=== PATIENT | male | born 1945 | race Caucasian/White ===

== ENCOUNTER 2022-02-13 09:12 | Inpatient (IN) | payer OTHER, MEDICAID ==
[~2022-02-13] VITALS: Ht 170.2 cm; Wt 67.6 kg
[~2022-02-13 09:12] MED LIST: ALBMDI INH; AZIT500T10 PO; CARB1TAB33 PO; GABA-529 PO
[2022-02-13 09:16] VITALS: BP_SYST 119
[2022-02-13] MEDS ORDERED: IPRATROPIUM/ALBUTEROL SULFATE 3 ML AMPUL.NEB (DUONEB) INH ONE ×2 (09:30→16:30)
[2022-02-13] MEDS ORDERED: methylPREDNISolone SOD SUCC/PF 62.5 MG/ML VIAL IVP ONE (09:30)
[2022-02-13] MEDS ORDERED: MOM PO (09:31)
[2022-02-13] MEDS ORDERED: ROSU10TA2 PO (09:31)
[2022-02-13] MEDS ORDERED: TAMS-11 PO (09:31)
[2022-02-13] MEDS ORDERED: BISA10SU61 RC (09:31)
[2022-02-13] MEDS ORDERED: FINA5TAB3 PO (09:31)
[2022-02-13] MEDS ORDERED: SER25 PO (09:31)
[2022-02-13] MEDS ORDERED: ROTI1PAT7 TP (09:31)
[2022-02-13 09:50] LABS: BASOPHILS % (AUTO) 0.8 % (0.0-2.0); EOSINOPHILS # (AUTO) 0.6 K/uL (0.0-0.4); EOSINOPHILS % (AUTO) 11.2 % (0.0-4.0); HEMATOCRIT 39.1 % (36-54); HEMOGLOBIN 13.1 g/dL (14.0-18.0); LYMPHOCYTES % (AUTO) 19.1 % (20.5-51.5); MEAN CORPUSCULAR HEMOGLOBIN 31 pg (27-31); MEAN CORPUSCULAR HGB CONC 34 % (32-36); MEAN CORPUSCULAR VOLUME 91 fL (79.0-98.0); MONOCYTES # (AUTO) 0.5 K/uL (0.0-1.0); MONOCYTES % (AUTO) 10.1 % (1.7-9.3); NEUTROPHILS # (AUTO) 3.1 K/uL (1.8-7.7); NEUTROPHILS % (AUTO) 58.8 % (40.0-70.0); PLATELET COUNT (AUTO) 265 K/uL (130-430); RED BLOOD CELL COUNT(AUTO) 4.29 MIL/uL (4.2-6.2); RED CELL DISTRIBUTION WIDTH 13.5 % (9.0-15.0); WHITE BLOOD COUNT (AUTO) 5.2 K/uL (4.8-10.8)
[2022-02-13 09:59] LABS: ANION GAP 8 (5-15); CALCIUM 8.6 mg/dL (8.4-11.0); CHLORIDE 104 mmol/L (98-107); CREATININE 0.91 mg/dL (0.55-1.30); GLUCOSE 119 mg/dL (70-99); UREA NITROGEN, BLOOD 16 mg/dL (8-21)
[2022-02-13 10:07] LABS: ALANINE AMINOTRANSFERASE 11 U/L (12-78); ALBUMIN 3.8 g/dL (3.4-4.8); ASPARTATE AMINOTRANSFERASE 31 U/L (10-37); TOTAL BILIRUBIN 0.5 mg/dL (0.0-1.0)
[2022-02-13] MEDS ORDERED: NACL 0.9% 1,000 ML IV ONE (16:30)
[2022-02-13 17:12] LABS: BASOPHILS % (AUTO) 0.2 % (0.0-2.0); EOSINOPHILS % (AUTO) 0.1 % (0.0-4.0); HEMATOCRIT 40.3 % (36-54); HEMOGLOBIN 14.2 g/dL (14.0-18.0); LYMPHOCYTES # (AUTO) 0.5 K/uL (1.0-5.5); LYMPHOCYTES % (AUTO) 19.5 % (20.5-51.5); MEAN CORPUSCULAR HEMOGLOBIN 32 pg (27-31); MEAN CORPUSCULAR HGB CONC 35 % (32-36); MEAN CORPUSCULAR VOLUME 90 fL (79.0-98.0); MONOCYTES % (AUTO) 1.1 % (1.7-9.3); PLATELET COUNT (AUTO) 251 K/uL (130-430); RED BLOOD CELL COUNT(AUTO) 4.48 MIL/uL (4.2-6.2); RED CELL DISTRIBUTION WIDTH 13.3 % (9.0-15.0); WHITE BLOOD COUNT (AUTO) 2.5 K/uL (4.8-10.8)
[2022-02-13 17:28] LABS: NEUTROPHILS % (AUTO) 79.1 % (40.0-70.0)
[2022-02-13 17:30] LABS: ANION GAP 9 (5-15); CALCIUM 8.9 mg/dL (8.4-11.0); CHLORIDE 104 mmol/L (98-107); CREATININE 1.07 mg/dL (0.55-1.30); GLUCOSE 229 mg/dL (70-99); UREA NITROGEN, BLOOD 15 mg/dL (8-21)
[2022-02-13 17:39] LABS: BILIRUBIN,URINE NEGATIVE (NEGATIVE); BLOOD, URINE NEGATIVE (NEGATIVE); CLARITY/URINE CLEAR (CLEAR); COLOR,URINE YELLOW (YELLOW); GLUCOSE,URINE NEGATIVE (NEGATIVE); KETONES,URINE TRACE (NEGATIVE); LEUKOCYTE ESTERASE ,URINE NEGATIVE (NEGATIVE); NITRITE, URINE NEGATIVE (NEGATIVE); PH,URINE 5.5 (5.0-8.0); PROTEIN URINE NEGATIVE (NEGATIVE); UROBILINOGEN,URINE 0.2 (0.2-1.0)
[2022-02-13 22:10] VITALS: BP_SYST 118
[2022-02-13] MEDS ORDERED: ALPRAZolam 0.25 MG TABLET PO PRN (22:45)
[2022-02-13] MEDS ORDERED: PROMETHAZINE HCL 6.25 MG/5 ML UDC PO PRN (22:45)
[2022-02-13] MEDS ORDERED: AZITHROMYCIN 500 MG/VIAL (ZITHROMAX) IV ONE (23:19)
[2022-02-13] MEDS ORDERED: cefTRIAXone 1 GM VIAL ONE (23:19)
[2022-02-13] MEDS: cefTRIAXone 1 GM IVPB PREMIX 50 ML IV SCH (23:28)
[2022-02-13] MEDS: AZITHROMYCIN 500 MG in NS 250 ML IV SCH (23:28)
[2022-02-14 00:36] VITALS: BP_SYST 133
[2022-02-14 08:00] VITALS: BP_SYST 122; BP_SYST 138
[2022-02-14] MEDS ORDERED: MILK OF MAGNESIA 30 ML UDC PO PRN (09:30)
[2022-02-14] MEDS ORDERED: ALBUTEROL SULFATE 0.083% 2.5 MG/3 ML VIAL.NEB INH PRN (10:45)
[2022-02-14] MEDS: ACETYLCYSTEINE 10% 4 ML VIAL (RT) INH SCH ×2 (11:00→15:04)
[2022-02-14 11:57] VITALS: BP_SYST 139
[2022-02-14] MEDS ORDERED: guaiFENesin/DEXTROMETHORPHAN 10 ML UDC PO PRN (13:00)
[2022-02-14] MEDS: CARBIDOPA/LEVODOPA 25/100 MG TABLET PO SCH ×2 (13:00→18:38)
[2022-02-14] MEDS ORDERED: methylPREDNISolone SOD SUCC/PF 62.5 MG/ML VIAL IVP SCH (14:00)
[2022-02-14] MEDS: GABAPENTIN 100 MG CAPSULE PO SCH (15:27)
[2022-02-14 16:55] VITALS: BP_SYST 138
[2022-02-14 17:00] VITALS: BP_SYST 143
[2022-02-14] MEDS: methylPREDNISolone SOD SUCC/PF 62.5 MG/ML VIAL IVP SCH (18:38)
[2022-02-14] MEDS: IPRATROPIUM/ALBUTEROL SULFATE 3 ML AMPUL.NEB (DUONEB) INH SCH ×2 (18:53→23:41)
[2022-02-14] MEDS: ACETYLCYSTEINE 20% 4 ML VIAL (RT) INH SCH (18:54)
[2022-02-14 20:00] VITALS: BP_SYST 132
[2022-02-15] MEDS: CARBIDOPA/LEVODOPA 25/100 MG TABLET PO SCH ×5 (00:17→20:50)
[2022-02-15] MEDS: GABAPENTIN 100 MG CAPSULE PO SCH ×4 (00:18→20:50)
[2022-02-15] MEDS: methylPREDNISolone SOD SUCC/PF 62.5 MG/ML VIAL IVP SCH ×4 (00:20→17:41)
[2022-02-15] MEDS: AZITHROMYCIN 500 MG in NS 250 ML IV SCH (00:21)
[2022-02-15] MEDS: cefTRIAXone 1 GM IVPB PREMIX 50 ML IV SCH ×2 (00:23→21:20)
[2022-02-15 00:58] VITALS: BP_SYST 130
[2022-02-15] MEDS: IPRATROPIUM/ALBUTEROL SULFATE 3 ML AMPUL.NEB (DUONEB) INH SCH ×4 (03:14→15:12)
[2022-02-15] MEDS: ACETYLCYSTEINE 20% 4 ML VIAL (RT) INH SCH ×2 (07:19→15:13)
[2022-02-15 08:00] VITALS: BP_SYST 129
[2022-02-15 08:46] LABS: ANION GAP 11 (5-15); CALCIUM 8.2 mg/dL (8.4-11.0); CHLORIDE 102 mmol/L (98-107); CREATININE 1.05 mg/dL (0.55-1.30); GLUCOSE 162 mg/dL (70-99); UREA NITROGEN, BLOOD 21 mg/dL (8-21)
[2022-02-15 08:50] LABS: HEMATOCRIT 39.5 % (36-54); HEMOGLOBIN 13.5 g/dL (14.0-18.0); LYMPHOCYTES # (AUTO) 0.6 K/uL (1.0-5.5); LYMPHOCYTES % (AUTO) 10.6 % (20.5-51.5); MEAN CORPUSCULAR HEMOGLOBIN 31 pg (27-31); MEAN CORPUSCULAR HGB CONC 34 % (32-36); MEAN CORPUSCULAR VOLUME 90 fL (79.0-98.0); MONOCYTES # (AUTO) 0.1 K/uL (0.0-1.0); NEUTROPHILS # (AUTO) 4.8 K/uL (1.8-7.7); NEUTROPHILS % (AUTO) 88.4 % (40.0-70.0); PLATELET COUNT (AUTO) 281 K/uL (130-430); RED BLOOD CELL COUNT(AUTO) 4.38 MIL/uL (4.2-6.2); RED CELL DISTRIBUTION WIDTH 13.2 % (9.0-15.0); WHITE BLOOD COUNT (AUTO) 5.4 K/uL (4.8-10.8)
[2022-02-15] MEDS: ATORVASTATIN 20 MG TABLET PO SCH (08:53)
[2022-02-15] MEDS: FINASTERIDE 5 MG TABLET (PROSCAR) PO SCH (08:53)
[2022-02-15] MEDS: TAMSULOSIN HCL 0.4 MG CAP PO SCH (08:53)
[2022-02-15] MEDS: QUEtiapine FUMARATE 25 MG TABLET PO SCH (08:53)
[2022-02-15] MEDS ORDERED: ROSUVASTATIN CALCIUM 5 MG/TAB (CRESTOR) PO SCH (09:00)
[2022-02-15] MEDS: PATIENT'S OWN TOPICAL TD SCH (09:00)
[2022-02-15] MEDS ORDERED: ROTIGOTINE TP SCH (09:00)
[2022-02-15 11:30] VITALS: BP_SYST 122
[2022-02-15 16:10] VITALS: BP_SYST 119
[2022-02-15 20:00] VITALS: BP_SYST 124
[2022-02-16] MEDS: AZITHROMYCIN 500 MG in NS 250 ML IV SCH ×2 (00:17→23:45)
[2022-02-16] MEDS: methylPREDNISolone SOD SUCC/PF 62.5 MG/ML VIAL IVP SCH ×4 (00:17→18:29)
[2022-02-16 00:55] VITALS: BP_SYST 103; BP_SYST 124
[2022-02-16] MEDS: IPRATROPIUM/ALBUTEROL SULFATE 3 ML AMPUL.NEB (DUONEB) INH SCH ×6 (05:21→20:18)
[2022-02-16] MEDS: ACETYLCYSTEINE 20% 4 ML VIAL (RT) INH SCH ×4 (05:21→20:18)
[2022-02-16] MEDS: GABAPENTIN 100 MG CAPSULE PO SCH ×3 (08:42→21:32)
[2022-02-16] MEDS: QUEtiapine FUMARATE 25 MG TABLET PO SCH (08:45)
[2022-02-16] MEDS: TAMSULOSIN HCL 0.4 MG CAP PO SCH (08:45)
[2022-02-16] MEDS: CARBIDOPA/LEVODOPA 25/100 MG TABLET PO SCH ×4 (08:45→21:32)
[2022-02-16] MEDS: FINASTERIDE 5 MG TABLET (PROSCAR) PO SCH (08:48)
[2022-02-16] MEDS: PATIENT'S OWN TOPICAL TD SCH ×2 (08:49→09:00)
[2022-02-16 09:42] VITALS: BP_SYST 135
[2022-02-16] MEDS ORDERED: FINASTERIDE 5 MG TABLET (PROSCAR) PO ONE (11:30)
[2022-02-16 12:40] VITALS: BP_SYST 113
[2022-02-16 20:00] VITALS: BP_SYST 131
[2022-02-16] MEDS: cefTRIAXone 1 GM IVPB PREMIX 50 ML IV SCH (21:33)
[2022-02-17] VITALS: BP_SYST 129
[2022-02-17] MEDS: IPRATROPIUM/ALBUTEROL SULFATE 3 ML AMPUL.NEB (DUONEB) INH SCH ×5 (00:29→16:21)
[2022-02-17] MEDS: methylPREDNISolone SOD SUCC/PF 62.5 MG/ML VIAL IVP SCH ×4 (06:59→18:51)
[2022-02-17 07:12] LABS: ANION GAP 8 (5-15); CALCIUM 8.6 mg/dL (8.4-11.0); CHLORIDE 105 mmol/L (98-107); CREATININE 1.08 mg/dL (0.55-1.30); GLUCOSE 128 mg/dL (70-99); UREA NITROGEN, BLOOD 25 mg/dL (8-21)
[2022-02-17] MEDS: ACETYLCYSTEINE 20% 4 ML VIAL (RT) INH SCH ×2 (07:52→16:21)
[2022-02-17 08:15] LABS: HEMATOCRIT 39.6 % (36-54); HEMOGLOBIN 13.5 g/dL (14.0-18.0); LYMPHOCYTES # (AUTO) 0.5 K/uL (1.0-5.5); MEAN CORPUSCULAR HEMOGLOBIN 31 pg (27-31); MEAN CORPUSCULAR HGB CONC 34 % (32-36); MEAN CORPUSCULAR VOLUME 90 fL (79.0-98.0); MONOCYTES # (AUTO) 0.6 K/uL (0.0-1.0); MONOCYTES % (AUTO) 5.3 % (1.7-9.3); NEUTROPHILS # (AUTO) 9.4 K/uL (1.8-7.7); NEUTROPHILS % (AUTO) 89.7 % (40.0-70.0); PLATELET COUNT (AUTO) 301 K/uL (130-430); RED BLOOD CELL COUNT(AUTO) 4.39 MIL/uL (4.2-6.2); RED CELL DISTRIBUTION WIDTH 13.2 % (9.0-15.0); WHITE BLOOD COUNT (AUTO) 10.5 K/uL (4.8-10.8)
[2022-02-17 10:36] VITALS: BP_SYST 129
[2022-02-17] MEDS: CARBIDOPA/LEVODOPA 25/100 MG TABLET PO SCH ×4 (13:00→21:44)
[2022-02-17] MEDS: GABAPENTIN 100 MG CAPSULE PO SCH ×3 (15:00→21:44)
[2022-02-17] MEDS: TAMSULOSIN HCL 0.4 MG CAP PO SCH (18:46)
[2022-02-17] MEDS: QUEtiapine FUMARATE 25 MG TABLET PO SCH (18:48)
[2022-02-17] MEDS: FINASTERIDE 5 MG TABLET (PROSCAR) PO SCH (18:48)
[2022-02-17] MEDS: PATIENT'S OWN TOPICAL TD SCH (18:51)
[2022-02-17 20:00] VITALS: BP_SYST 130; BP_SYST 135
[2022-02-17] MEDS: cefTRIAXone 1 GM IVPB PREMIX 50 ML IV SCH (21:46)
[2022-02-17] MEDS: AZITHROMYCIN 500 MG in NS 250 ML IV SCH (23:10)
[2022-02-18 00:30] VITALS: BP_SYST 119
[2022-02-18] MEDS: methylPREDNISolone SOD SUCC/PF 62.5 MG/ML VIAL IVP SCH ×4 (00:38→17:07)
[2022-02-18] MEDS: ACETYLCYSTEINE 20% 4 ML VIAL (RT) INH SCH ×3 (07:31→19:01)
[2022-02-18] MEDS: IPRATROPIUM/ALBUTEROL SULFATE 3 ML AMPUL.NEB (DUONEB) INH SCH ×5 (07:31→23:59)
[2022-02-18] MEDS: PATIENT'S OWN TOPICAL TD SCH (09:00)
[2022-02-18 12:24] VITALS: BP_SYST 133
[2022-02-18] MEDS: TAMSULOSIN HCL 0.4 MG CAP PO SCH (16:55)
[2022-02-18] MEDS: ATORVASTATIN 20 MG TABLET PO SCH (16:57)
[2022-02-18] MEDS: GABAPENTIN 100 MG CAPSULE PO SCH ×2 (16:57→17:06)
[2022-02-18] MEDS: FINASTERIDE 5 MG TABLET (PROSCAR) PO SCH (16:58)
[2022-02-18] MEDS: CARBIDOPA/LEVODOPA 25/100 MG TABLET PO SCH ×3 (16:59→17:08)
[2022-02-18] MEDS: QUEtiapine FUMARATE 25 MG TABLET PO SCH (16:59)
[2022-02-18 17:57] VITALS: BP_SYST 136
[2022-02-18 20:00] VITALS: BP_SYST 139
[2022-02-19 00:18] VITALS: BP_SYST 147
[2022-02-19] MEDS: GABAPENTIN 100 MG CAPSULE PO SCH ×2 (00:37→09:51)
[2022-02-19] MEDS: CARBIDOPA/LEVODOPA 25/100 MG TABLET PO SCH ×3 (00:41→13:08)
[2022-02-19] MEDS: methylPREDNISolone SOD SUCC/PF 62.5 MG/ML VIAL IVP SCH ×3 (00:42→13:07)
[2022-02-19] MEDS: cefTRIAXone 1 GM IVPB PREMIX 50 ML IV SCH (00:43)
[2022-02-19] MEDS: IPRATROPIUM/ALBUTEROL SULFATE 3 ML AMPUL.NEB (DUONEB) INH SCH ×4 (03:00→14:57)
[2022-02-19] MEDS: ACETYLCYSTEINE 20% 4 ML VIAL (RT) INH SCH ×2 (07:29→14:58)
[2022-02-19] MEDS: FINASTERIDE 5 MG TABLET (PROSCAR) PO SCH (09:48)
[2022-02-19] MEDS: QUEtiapine FUMARATE 25 MG TABLET PO SCH (09:49)
[2022-02-19] MEDS: TAMSULOSIN HCL 0.4 MG CAP PO SCH (09:49)
[2022-02-19] MEDS: PATIENT'S OWN TOPICAL TD SCH (09:51)
[2022-02-19] MEDS ORDERED: AZIT500T10 PO (12:22)
[2022-02-19] MEDS ORDERED: LIDO TP (12:24)
[2022-02-19 12:31] VITALS: BP_SYST 134
[2022-02-19] MEDS ORDERED: ZIT250 PO (15:36)
[2022-02-19] MEDS ORDERED: PRED20TA PO (15:36)
== END 2022-02-19 15:20 | DRG 177 ==
LOC: SED 09:12 → STU 16:29 → SMU 02-17 00:08
PROVIDERS: ADMIT Internal Medicine; ATTEND Internal Medicine
DX: J69.0 Pneumonitis due to inhalation of food and vomit (principal); J96.01 Acute respiratory failure with hypoxia; J44.1 Chronic obstructive pulmonary disease with (acute) exacerbation; J45.901 Unspecified asthma with (acute) exacerbation; J44.0 Chronic obstructive pulmonary disease with (acute) lower respiratory infection; J20.9 Acute bronchitis, unspecified; E78.5 Hyperlipidemia, unspecified; N40.0 Benign prostatic hyperplasia without lower urinary tract symptoms; G20 Parkinson's disease; Z20.822 Contact with and (suspected) exposure to COVID-19
CPT/HCPCS: 36415; 71045; 71270-TC; 76376; 80048; 80053; 81003; 82962; 83880; 84484; 85025; 87070-TC; 87081; 87205-TC; 92610-GN; 93005; 94640; 94668; 94760; 96361; 96374; 99285; G0378; J0456; J0696; J2930; J7050; J7608; J7613; Q0169

== ENCOUNTER 2022-05-15 09:28 | Emergency (ER) | payer OTHER, MEDICAID ==
[~2022-05-15] VITALS: Ht 175.3 cm; Wt 79.4 kg
[2022-05-15 09:28] VITALS: BP_SYST 112
[~2022-05-15 09:28] MED LIST changes: +BISA10SU61 RC; +FINA5TAB3 PO; +LIDO TP; +MOM PO; +PRED20TA PO; +ROSU10TA2 PO; +ROTI1PAT7 TP; +SER25 PO; +TAMS-11 PO; +ZIT250 PO
--- NOTE | 2022-05-15 09:28 | NUR ---
BROUGHT IN BY [facility] FROM [facility], TRIAGED AND PLACED IN BED #3. REPORT GIVEN TO IDANIA
--- NOTE | 2022-05-15 09:30 | NUR ---
RECEIVED PT FROM [facility]. PT BIBA BLS FOR COUGH, AB PAIN, ANXIETY. PT IS AAOX4. ON N/C AT 2LPM , O2 SAT 97%. PT HAS NONPRODUCTIVE COUGH WITH RHONCHI. PT DENIES N/V/D/C. DISTAL PULSES NORMAL SKIN WARM, CDI, NO EDEMA. SIDERAILS UP X 2.
--- NOTE | 2022-05-15 09:30 | NUR ---
DR. GRADY AT BEDSIDE TO ASSESS PT.
--- NOTE | 2022-05-15 09:43 | NUR ---
R/T AT BEDSIDE, PT RECEIVING BREATHING TX.
[2022-05-15] MEDS ORDERED: IPRATROPIUM/ALBUTEROL SULFATE 3 ML AMPUL.NEB (DUONEB) INH ONE (09:45)
[2022-05-15] MEDS ORDERED: methylPREDNISolone SOD SUCC/PF 62.5 MG/ML VIAL IVP ONE (09:45)
[2022-05-15] MEDS ORDERED: MAGNESIUM SULFATE 1 GM in NS 50 ML IV ONE (09:45)
[2022-05-15 10:01] LABS: BASOPHILS # (AUTO) 0.1 K/uL (0.0-0.2); BASOPHILS % (AUTO) 1.5 % (0.0-2.0); EOSINOPHILS # (AUTO) 0.7 K/uL (0.0-0.4); EOSINOPHILS % (AUTO) 12.6 % (0.0-4.0); HEMATOCRIT 40.2 % (36-54); HEMOGLOBIN 13.4 g/dL (14.0-18.0); LYMPHOCYTES # (AUTO) 1.2 K/uL (1.0-5.5); LYMPHOCYTES % (AUTO) 22.2 % (20.5-51.5); MEAN CORPUSCULAR HEMOGLOBIN 31 pg (27-31); MEAN CORPUSCULAR HGB CONC 33 % (32-36); MEAN CORPUSCULAR VOLUME 92 fL (79.0-98.0); MONOCYTES # (AUTO) 0.6 K/uL (0.0-1.0); MONOCYTES % (AUTO) 10.7 % (1.7-9.3); NEUTROPHILS # (AUTO) 2.9 K/uL (1.8-7.7); PLATELET COUNT (AUTO) 269 K/uL (130-430); RED BLOOD CELL COUNT(AUTO) 4.39 MIL/uL (4.2-6.2); WHITE BLOOD COUNT (AUTO) 5.4 K/uL (4.8-10.8)
--- NOTE | 2022-05-15 10:10 | NUR ---
RT NOTE: 1010 Unable to perform peak flow pre-HHN tx. Peak flow post-HHN tx was done 3 times, 230LPM was the best number. According to his age and height, the number is below 50%, and considered to be in the red zone. At the moment, patient appears to be resting and in no apparent respiratory distress. Pt has bronchospastic cough and expiratory wheezes on auscultation.
--- NOTE | 2022-05-15 10:14 | NUR ---
COVID AND MRSA SWABBED AND SENT TO LAB
[2022-05-15 10:17] LABS: ANION GAP 4 (5-15); CALCIUM 8.6 mg/dL (8.4-11.0); CHLORIDE 104 mmol/L (98-107); CREATININE 0.86 mg/dL (0.55-1.30); GLUCOSE 96 mg/dL (70-99); UREA NITROGEN, BLOOD 15 mg/dL (8-21)
[2022-05-15 10:24] LABS: ALANINE AMINOTRANSFERASE 10 U/L (12-78); ALBUMIN 3.3 g/dL (3.4-4.8); ASPARTATE AMINOTRANSFERASE 17 U/L (10-37); TOTAL BILIRUBIN 0.5 mg/dL (0.0-1.0)
[2022-05-15] MEDS ORDERED: MAGNESIUM SULFATE 1 GM/2 ML VIAL ONE (10:36)
--- NOTE | 2022-05-15 10:39 | NUR ---
MAG SO4 IVPG INITIATED AT 50ML/HOUR. SOLUMEDROL IVP GIVEN.
--- NOTE | 2022-05-15 11:14 | NUR ---
FLU SWABBED AND GIVEN TO HAM TRIMMER
--- NOTE | 2022-05-15 12:23 | NUR ---
CALLING FOR [facility] FOR TRANSPORT BACK TO FACILITY. GAVE DR. MATHEWS AN UPDATE ON PT STATUS.
[2022-05-15 12:30] LABS: BILIRUBIN,URINE NEGATIVE (NEGATIVE); BLOOD, URINE 2+ (NEGATIVE); CLARITY/URINE CLEAR (CLEAR); COLOR,URINE YELLOW (YELLOW); GLUCOSE,URINE NEGATIVE (NEGATIVE); KETONES,URINE NEGATIVE (NEGATIVE); LEUKOCYTE ESTERASE ,URINE NEGATIVE (NEGATIVE); NITRITE, URINE NEGATIVE (NEGATIVE); PH,URINE 5.5 (5.0-8.0); PROTEIN URINE NEGATIVE (NEGATIVE); UROBILINOGEN,URINE 0.2 (0.2-1.0)
--- NOTE | 2022-05-15 12:38 | NUR ---
DR. KEEN, [facility], CALLED BACK TO SPEAK TO DR. GRADY REGARDING PT STATUS.
[2022-05-15 12:42] LABS: BACTERIA,URINE FEW /HPF (None Seen); MUCUS,URINE 1+ /LPF (None Seen)
[2022-05-15] MEDS ORDERED: PRED20TA PO (12:43)
--- NOTE | 2022-05-15 13:00 | NUR ---
[facility] ETA 1400 SPOKE TO DOYLE ELLIS EPRP
--- NOTE | 2022-05-15 13:23 | NUR ---
CALLED [facility] AT [phone]. GAVE REPORT TO MR. DC RN, DON AND MADE HIM AWARE PT WILL TRANSFER BY [facility] AT 1400. MR. IRWIN VERBALIZED UNDERSTANDING. PT MADE AWARE.
[2022-05-15 14:04] VITALS: BP_SYST 130
--- NOTE | 2022-05-15 14:06 | NUR ---
Patient given written and verbal discharge instructions and verbalizes understanding. ER MD discussed with patient the results and treatment provided. Patient in stable condition. ID arm band removed. IV catheter removed intact and dressing applied, no active bleeding. Rx of PREDNISONE given. Patient educated on pain management and to follow up with PMD. Pain Scale 0/10. Opportunity for questions provided and answered. Medication side effect fact sheet provided. PT TRANSFERRED BACK TO FACILITY VIA [facility] ON A GURNEY ACCOMPANIED BY 2 [employer].
== END 2022-05-15 14:06 ==
LOC: SED 09:28
DX: J44.1 Chronic obstructive pulmonary disease with (acute) exacerbation (principal); R07.9 Chest pain, unspecified; R05.9 Cough, unspecified; F41.9 Anxiety disorder, unspecified; Z79.899 Other long term (current) drug therapy; Z20.822 Contact with and (suspected) exposure to COVID-19
CPT/HCPCS: 99285; 96365; 71045; 96375; 87426; 80053; 81000; 83880; 85025; 87086; 84484; 36415; 93005; 94640; 94150; 83605; 87804 ×2; 87040; 87081; J3475; J2930